=== PATIENT | male | born 1960 | race African-American/Black ===

== ENCOUNTER 2018-06-26 12:03 | Inpatient (IN) | payer OTHER ==
[2018-06-26 12:20] VITALS: BMI 22.5
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
[2018-06-26] MEDS ORDERED: MENTHOL/PHENOL 1 EACH UD MM PRN (13:31)
[2018-06-26] MEDS ORDERED: MAGNESIUM CITRATE 300 ML BOTTLE PO PRN (13:31)
[2018-06-26] MEDS ORDERED: guaiFENesin/D-METHORPHAN HB 10 ML UNIT-DOSE CUPS PO PRN (13:31)
[2018-06-26] MEDS ORDERED: NICOTINE POLACRILEX 2 MG GUM BUC PRN (13:31)
[2018-06-26] MEDS ORDERED: P-EPHED 60MG/TRIPROLIDI 2.5MG TABLET PO PRN (13:31)
[2018-06-26] MEDS ORDERED: IBUPROFEN 400 MG TABLET (FP) PO PRN (13:31)
[2018-06-26] MEDS ORDERED: MAG HYDROX/AL HYDROX/SIMETH 30 ML UNIT-DOSE CUP PO PRN (13:31)
[2018-06-26] MEDS ORDERED: MAGNESIUM HYDROX 2400MG/30ML ORAL SUSPENSION 30 ML CUP PO PRN (13:31)
[2018-06-26] MEDS ORDERED: LOPERAMIDE HCL 2 MG CAPSULE PO PRN (13:31)
--- NOTE | 2018-06-26 13:39 | PN ---
[facility] Progress Note Note: patient is also on suboxone maintenance 8 mgs/2 mgs film sl bid
[2018-06-26] MEDS: AMOX TR/POT CLAV 875MG/125MG TABLETS (FP) PO SCH (15:36)
[2018-06-26] MEDS: BACITRACIN 0.9 GM PACKET TP SCH ×2 (15:36→21:45)
[2018-06-26] MEDS: NICOTINE 21 MG/24 HOURS TOPICAL PATCH TD SCH (15:36)
[2018-06-26] MEDS: metFORMIN HCL 500 MG TABLET (FP) PO SCH (17:12)
[2018-06-26] MEDS: INSULIN SLIDING SCALE (NOVOLOG) 1 VIAL SQ SCH ×2 (17:13→21:46)
[2018-06-26] MEDS ORDERED: INSULIN (NOVOLOG) ASPART 100 UNITS/ML 10ML VIAL ONE (17:16)
[2018-06-26 18:33] LABS: URINE APPEARANCE CLEAR; URINE BILIRUBIN NEGATIVE (<2.0 mg/dL); URINE COLOR STRAW; URINE GLUCOSE (UA) 3+ (NEGATIVE); URINE KETONE NEGATIVE (NEGATIVE); URINE LEUK ESTERASE NEGATIVE (NEGATIVE); URINE NITRITE NEGATIVE (NEGATIVE); URINE PROTEIN NEGATIVE (NEGATIVE); URINE UROBILINOGEN NEGATIVE mg/dL (0.2-1.0)
[2018-06-26] MEDS: SULFAMETHOXAZOLE/TRIMETHOPRIM 800MG/160MG D.S. TABLET PO SCH (21:45)
[2018-06-26] MEDS: THIAMINE HCL 100 MG TABLET (FP) PO SCH (21:45)
[2018-06-26] MEDS: BUPRENORPHINE/NALOXONE 8 MG/2 MG FILM PACKET SL SCH (21:45)
[2018-06-26] MEDS: diphenhydrAMINE HCL 25 MG CAPSULE (FP) PO PRN (21:45)
[2018-06-26] MEDS: INSULIN (LEVEMIR) 100 UNITS/ML UNITS SQ SCH (21:48)
[2018-06-27] MEDS: AMOX TR/POT CLAV 875MG/125MG TABLETS (FP) PO SCH ×2 (02:14→14:37)
[2018-06-27] MEDS: metFORMIN HCL 500 MG TABLET (FP) PO SCH ×2 (06:07→16:55)
[2018-06-27] MEDS: INSULIN SLIDING SCALE (NOVOLOG) 1 VIAL SQ SCH ×4 (06:08→21:14)
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
[2018-06-27] MEDS: PRENATAL VITAMINS W/ FOLIC ACID TABLET (FP) PO SCH (10:02)
[2018-06-27] MEDS: NICOTINE 21 MG/24 HOURS TOPICAL PATCH TD SCH (10:02)
[2018-06-27] MEDS: SULFAMETHOXAZOLE/TRIMETHOPRIM 800MG/160MG D.S. TABLET PO SCH ×2 (10:02→21:11)
[2018-06-27] MEDS: BUPRENORPHINE/NALOXONE 8 MG/2 MG FILM PACKET SL SCH ×2 (10:02→21:50)
[2018-06-27] MEDS: ASPIRIN COATED 81 MG TABLET.EC PO SCH (10:02)
[2018-06-27] MEDS: BACITRACIN 0.9 GM PACKET TP SCH ×2 (10:02→21:11)
[2018-06-27 10:10] LABS: HEMATOCRIT 39.1 % (35.4-49); HEMOGLOBIN 12.6 GM/dL (11.7-16.9); MCH 28.3 pg (25.7-33.7); MCHC 32.3 g/dl (32.0-35.9); MEAN CELL VOLUME 87.5 fl (80-96); MEAN PLT VOLUME 10.7 fl (7.5-11.1); PLATELET COUNT 264 K/MM3 (134-434); RBC 4.47 M/mm3 (4.00-5.60); RDW 14.7 % (11.9-15.9); WHITE BLOOD COUNT 6.5 K/mm3 (4.0-10.0)
[2018-06-27 10:27] LABS: ALBUMIN 3.8 g/dl (3.4-5.0); ALK PHOS 102 U/L (45-117); ANION GAP 9 MMOL/L (8-16); BILIRUBIN,TOTAL 0.4 mg/dL (0.2-1); BLOOD UREA NITROGEN 15 mg/dL (7-18); CALCIUM 9.1 mg/dL (8.5-10.1); CHLORIDE 94 mmol/L (98-107); CO2 27 mmol/L (21-32); CREATININE 1.1 mg/dL (0.55-1.3); POTASSIUM 4.8 mmol/L (3.5-5.1); SGOT/AST 13 U/L (15-37); SGPT/ALT 20 U/L (13-61); SODIUM 130 mmol/L (136-145); TOT PROT 8.2 g/dl (6.4-8.2)
[2018-06-27 11:07] LABS: GLUCOSE,RANDOM 307 mg/dL (74-106)
[2018-06-27] MEDS ORDERED: INSULIN (NOVOLOG) ASPART 100 UNITS/ML 10ML VIAL ONE (11:55)
[2018-06-27] MEDS ORDERED: FLU VACCINE QUAD 60 MCG/0.5 ML (MDV 18-19) IM ONE (12:00)
[2018-06-27] MEDS: THIAMINE HCL 100 MG TABLET (FP) PO SCH (21:11)
[2018-06-27] MEDS: INSULIN (LEVEMIR) 100 UNITS/ML UNITS SQ SCH (21:14)
[2018-06-27] MEDS ORDERED: SUVOREXANT 10 MG TABLET PO PRN (22:00)
[2018-06-28] MEDS: INSULIN SLIDING SCALE (NOVOLOG) 1 VIAL SQ SCH ×2 (06:19→11:12)
[2018-06-28] MEDS: metFORMIN HCL 500 MG TABLET (FP) PO SCH ×2 (07:41→16:52)
[2018-06-28] MEDS: AMOX TR/POT CLAV 875MG/125MG TABLETS (FP) PO SCH ×2 (07:54→18:51)
[2018-06-28] MEDS ORDERED: PT OWN MED DRAWER 7, Y5N ONE (09:35)
[2018-06-28] MEDS: ASPIRIN COATED 81 MG TABLET.EC PO SCH (10:19)
[2018-06-28] MEDS: BUPRENORPHINE/NALOXONE 8 MG/2 MG FILM PACKET SL SCH ×2 (10:19→21:52)
[2018-06-28] MEDS: PRENATAL VITAMINS W/ FOLIC ACID TABLET (FP) PO SCH (10:19)
[2018-06-28] MEDS: NICOTINE 21 MG/24 HOURS TOPICAL PATCH TD SCH (10:19)
[2018-06-28] MEDS: SULFAMETHOXAZOLE/TRIMETHOPRIM 800MG/160MG D.S. TABLET PO SCH ×2 (10:19→21:51)
[2018-06-28] MEDS: BACITRACIN 0.9 GM PACKET TP SCH ×2 (10:19→21:52)
--- NOTE | 2018-06-28 11:12 | PN ---
[facility] Progress Note Note: PT C/O NOT EATING AND HAS UPSET STOMACH. PT WAS SEEN BY THE DIETITIAN THIS MORNING. Vital Signs 06/28/18 06/28/18 03:30 07:16 Temperature 98.1 F Pulse Rate 86 Respiratory 16 18 Rate Blood Pressure 104/65 Laboratory Tests 06/26/18 06/26/18 06/26/18 13:09 15:00 17:12 WBC RBC Hgb Hct MCV MCH MCHC RDW Plt Count MPV Sodium Potassium Chloride Carbon Dioxide Anion Gap BUN Creatinine Creat Clearance w eGFR POC Glucometer 473 372 Random Glucose Calcium Total Bilirubin AST ALT Alkaline Phosphatase Total Protein Albumin Urine Color Straw Urine Appearance Clear Urine pH 7.0 Ur Specific [place] 1.024 Urine Protein Negative Urine Glucose (UA) 3+ H Urine Ketones Negative Urine Blood Negative Urine Nitrite Negative Urine Bilirubin Negative Urine Urobilinogen Negative Ur Leukocyte Esterase Negative RPR Titer 06/26/18 06/27/18 06/27/18 21:46 06:00 06:00 WBC 6.5 RBC 4.47 Hgb 12.6 Hct 39.1 MCV 87.5 MCH 28.3 MCHC 32.3 RDW 14.7 Plt Count 264 MPV 10.7 Sodium 130 L Potassium 4.8 Chloride 94 L Carbon Dioxide 27 Anion Gap 9 BUN 15 Creatinine 1.1 Creat Clearance w eGFR > 60 POC Glucometer 165 Random Glucose 307 H* Calcium 9.1 Total Bilirubin 0.4 AST 13 L ALT 20 Alkaline Phosphatase 102 Total Protein 8.2 Albumin 3.8 Urine Color Urine Appearance Urine pH Ur Specific [place] Urine Protein Urine Glucose (UA) Urine Ketones Urine Blood Urine Nitrite Urine Bilirubin Urine Urobilinogen Ur Leukocyte Esterase RPR Titer 06/27/18 06/27/18 06/27/18 06:00 06:06 11:50 WBC RBC Hgb Hct MCV MCH MCHC RDW Plt Count MPV Sodium Potassium Chloride Carbon Dioxide Anion Gap BUN Creatinine Creat Clearance w eGFR POC Glucometer 117 82 Random Glucose Calcium Total Bilirubin AST ALT Alkaline Phosphatase Total Protein Albumin Urine Color Urine Appearance Urine pH Ur Specific [place] Urine Protein Urine Glucose (UA) Urine Ketones Urine Blood Urine Nitrite Urine Bilirubin Urine Urobilinogen Ur Leukocyte Esterase RPR Titer Nonreactive 06/27/18 06/27/18 06/28/18 16:55 21:12 06:15 WBC RBC Hgb Hct MCV MCH MCHC RDW Plt Count MPV Sodium Potassium Chloride Carbon Dioxide Anion Gap BUN Creatinine Creat Clearance w eGFR POC Glucometer 113 156 74 Random Glucose Calcium Total Bilirubin AST ALT Alkaline Phosphatase Total Protein Albumin Urine Color Urine Appearance Urine pH Ur Specific [place] Urine Protein Urine Glucose (UA) Urine Ketones Urine Blood Urine Nitrite Urine Bilirubin Urine Urobilinogen Ur Leukocyte Esterase RPR Titer PLAN;MYLANTA PRN GLUCERNA WITH MEALS DECREASE METFORMIN TO 500 MG BID AND LEVEMIR TO 20 UNITS HS AND RE-EVALUTE DOSES NEEDED(RE-EVALUATE AND MAY PUT PT BACK TO HOME DOSES IF NEEDED)
[2018-06-28] MEDS ORDERED: COLLOIDAL OATMEAL 1 BAR EACH TP PRN (12:53)
--- NOTE | 2018-06-28 16:23 | PN ---
[facility] Progress Note Note: Patient seen with FIELD SERVICE ENGINEER Yarelis Montiel. He is a 57 year old gentleman on Suboxone 16mg a day as an outpatient and would like to use it like he does at home: breaks off pieces of the strip as he sees fit to and feels the need to. Although I don't have a problem with using it in this way, I explained that it is against hospital policy to allow him to keep a narcotic on his person while in the inpatient setting. I offered to order the Suboxone as 4mg strips, 4 times a day but he refused. He told us that he would refuse the medication if he doesn't feel it is necessary at the time and I am in agreement with that. Suboxone has a ceiling and therefore you can start and stop doses more easily without worry for overdose. This was all explained to the patient and he agreed to our plan.
[2018-06-28] MEDS: THIAMINE HCL 100 MG TABLET (FP) PO SCH (21:51)
[2018-06-28] MEDS: INSULIN (LEVEMIR) 100 UNITS/ML UNITS SQ SCH (21:55)
[2018-06-29] MEDS: metFORMIN HCL 500 MG TABLET (FP) PO SCH ×2 (06:25→17:00)
[2018-06-29] MEDS: AMOX TR/POT CLAV 875MG/125MG TABLETS (FP) PO SCH ×2 (07:12→17:30)
[2018-06-29] MEDS: ASPIRIN COATED 81 MG TABLET.EC PO SCH (11:30)
[2018-06-29] MEDS: SULFAMETHOXAZOLE/TRIMETHOPRIM 800MG/160MG D.S. TABLET PO SCH ×2 (11:30→22:10)
[2018-06-29] MEDS: PRENATAL VITAMINS W/ FOLIC ACID TABLET (FP) PO SCH (11:30)
[2018-06-29] MEDS: NICOTINE 21 MG/24 HOURS TOPICAL PATCH TD SCH (11:30)
[2018-06-29] MEDS: BACITRACIN 0.9 GM PACKET TP SCH ×2 (11:31→22:12)
[2018-06-29] MEDS: BUPRENORPHINE/NALOXONE 8 MG/2 MG FILM PACKET SL SCH ×2 (11:34→22:11)
[2018-06-29] MEDS ORDERED: AMOX TR/POT CLAV 875MG/125MG TABLETS (FP) PO SCH (11:38)
--- NOTE | 2018-06-29 12:00 | PN ---
S Progress Note Note: Pt c/o abdominal upset as a result of using generic augumentin. Not receptive to education that the 2 antibiotics (also on Bactrim) and not the generic may be responsible for the stomach upset. Pt's Augmentin dose revised to say that pt may use own medication as pt stated he wants to use his own stock. He states the augmentin being given here upsets his abdomen.
[2018-06-29] MEDS ORDERED: AMOX TR/POT CLAV 875MG/125MG TABLETS (FP) PO ONE ×3 (12:01→13:45)
[2018-06-29] MEDS: THIAMINE HCL 100 MG TABLET (FP) PO SCH (22:10)
[2018-06-29] MEDS: INSULIN (LEVEMIR) 100 UNITS/ML UNITS SQ SCH (22:12)
[2018-06-29] MEDS: diphenhydrAMINE HCL 25 MG CAPSULE (FP) PO PRN (22:14)
[2018-06-30] MEDS: metFORMIN HCL 500 MG TABLET (FP) PO SCH ×2 (06:33→17:20)
[2018-06-30] MEDS: AMOX TR/POT CLAV 875MG/125MG TABLETS (FP) PO SCH ×2 (07:00→17:19)
[2018-06-30] MEDS: SULFAMETHOXAZOLE/TRIMETHOPRIM 800MG/160MG D.S. TABLET PO SCH ×2 (10:30→21:32)
[2018-06-30] MEDS: PRENATAL VITAMINS W/ FOLIC ACID TABLET (FP) PO SCH (10:30)
[2018-06-30] MEDS: ASPIRIN COATED 81 MG TABLET.EC PO SCH (10:31)
[2018-06-30] MEDS: BACITRACIN 0.9 GM PACKET TP SCH ×2 (10:31→21:32)
[2018-06-30] MEDS: BUPRENORPHINE/NALOXONE 8 MG/2 MG FILM PACKET SL SCH ×2 (10:31→22:17)
[2018-06-30] MEDS: NICOTINE 21 MG/24 HOURS TOPICAL PATCH TD SCH (10:31)
[2018-06-30] MEDS: THIAMINE HCL 100 MG TABLET (FP) PO SCH (21:32)
[2018-06-30] MEDS: diphenhydrAMINE HCL 25 MG CAPSULE (FP) PO PRN (21:33)
[2018-06-30] MEDS: INSULIN (LEVEMIR) 100 UNITS/ML UNITS SQ SCH (21:34)
[2018-06-30] MEDS ORDERED: SUVOREXANT 10 MG TABLET PO PRN (22:00)
[2018-07-01] MEDS: metFORMIN HCL 500 MG TABLET (FP) PO SCH ×2 (06:13→17:10)
[2018-07-01] MEDS: AMOX TR/POT CLAV 875MG/125MG TABLETS (FP) PO SCH ×2 (08:35→17:10)
[2018-07-01] MEDS: BACITRACIN 0.9 GM PACKET TP SCH ×2 (10:34→21:31)
[2018-07-01] MEDS: BUPRENORPHINE/NALOXONE 8 MG/2 MG FILM PACKET SL SCH ×2 (10:34→21:31)
[2018-07-01] MEDS: PRENATAL VITAMINS W/ FOLIC ACID TABLET (FP) PO SCH (10:35)
[2018-07-01] MEDS: NICOTINE 21 MG/24 HOURS TOPICAL PATCH TD SCH (10:35)
[2018-07-01] MEDS: SULFAMETHOXAZOLE/TRIMETHOPRIM 800MG/160MG D.S. TABLET PO SCH ×2 (10:35→21:30)
[2018-07-01] MEDS: ASPIRIN COATED 81 MG TABLET.EC PO SCH (10:55)
[2018-07-01] MEDS: ACETAMINOPHEN 325 MG TABLET (FP) PO PRN ×2 (17:16→21:30)
[2018-07-01] MEDS: INSULIN (LEVEMIR) 100 UNITS/ML UNITS SQ SCH (21:29)
[2018-07-01] MEDS: THIAMINE HCL 100 MG TABLET (FP) PO SCH (21:30)
[2018-07-02] MEDS: metFORMIN HCL 500 MG TABLET (FP) PO SCH ×2 (06:17→16:45)
[2018-07-02] MEDS: ACETAMINOPHEN 325 MG TABLET (FP) PO PRN (06:18)
[2018-07-02] MEDS: AMOX TR/POT CLAV 875MG/125MG TABLETS (FP) PO SCH ×2 (08:46→16:45)
[2018-07-02] MEDS: PRENATAL VITAMINS W/ FOLIC ACID TABLET (FP) PO SCH (10:46)
[2018-07-02] MEDS: SULFAMETHOXAZOLE/TRIMETHOPRIM 800MG/160MG D.S. TABLET PO SCH ×2 (10:47→21:30)
[2018-07-02] MEDS: NICOTINE 21 MG/24 HOURS TOPICAL PATCH TD SCH (10:47)
[2018-07-02] MEDS: ASPIRIN COATED 81 MG TABLET.EC PO SCH (10:47)
[2018-07-02] MEDS: BUPRENORPHINE/NALOXONE 8 MG/2 MG FILM PACKET SL SCH ×2 (10:47→21:34)
[2018-07-02] MEDS: BACITRACIN 0.9 GM PACKET TP SCH ×2 (10:48→21:30)
[2018-07-02] MEDS: THIAMINE HCL 100 MG TABLET (FP) PO SCH (21:30)
[2018-07-02] MEDS: hydrOXYzine PAMOATE 50 MG CAPSULE (FP) PO PRN (21:32)
[2018-07-02] MEDS: INSULIN (LEVEMIR) 100 UNITS/ML UNITS SQ SCH (21:34)
[2018-07-03] MEDS: metFORMIN HCL 500 MG TABLET (FP) PO SCH ×2 (06:12→17:54)
[2018-07-03] MEDS: AMOX TR/POT CLAV 875MG/125MG TABLETS (FP) PO SCH ×2 (07:48→17:54)
[2018-07-03] MEDS ORDERED: PT OWN MED DRAWER 7, Y5N ONE (08:47)
[2018-07-03] MEDS: BACITRACIN 0.9 GM PACKET TP SCH ×2 (10:56→22:10)
[2018-07-03] MEDS: ASPIRIN COATED 81 MG TABLET.EC PO SCH (10:56)
[2018-07-03] MEDS: SULFAMETHOXAZOLE/TRIMETHOPRIM 800MG/160MG D.S. TABLET PO SCH ×2 (10:56→22:10)
[2018-07-03] MEDS: PRENATAL VITAMINS W/ FOLIC ACID TABLET (FP) PO SCH (10:56)
[2018-07-03] MEDS: BUPRENORPHINE/NALOXONE 8 MG/2 MG FILM PACKET SL SCH (10:56)
[2018-07-03] MEDS: NICOTINE 21 MG/24 HOURS TOPICAL PATCH TD SCH (10:56)
[2018-07-03] MEDS: IBUPROFEN 600 MG TABLET (FP) PO PRN (15:53)
[2018-07-03] MEDS ORDERED: SUVOREXANT 10 MG TABLET PO PRN (22:00)
[2018-07-03] MEDS: THIAMINE HCL 100 MG TABLET (FP) PO SCH (22:10)
[2018-07-03] MEDS: diphenhydrAMINE HCL 25 MG CAPSULE (FP) PO PRN (22:11)
[2018-07-03] MEDS: INSULIN (LEVEMIR) 100 UNITS/ML UNITS SQ SCH (22:12)
[2018-07-04] MEDS ORDERED: PT OWN MED DRAWER 7, Y5N ONE (03:14)
[2018-07-04] MEDS: metFORMIN HCL 500 MG TABLET (FP) PO SCH ×2 (06:34→16:50)
[2018-07-04] MEDS: IBUPROFEN 600 MG TABLET (FP) PO PRN (06:35)
[2018-07-04] MEDS: AMOX TR/POT CLAV 875MG/125MG TABLETS (FP) PO SCH ×2 (07:06→16:50)
[2018-07-04] MEDS: ASPIRIN COATED 81 MG TABLET.EC PO SCH (10:29)
[2018-07-04] MEDS: PRENATAL VITAMINS W/ FOLIC ACID TABLET (FP) PO SCH (10:29)
[2018-07-04] MEDS: NICOTINE 21 MG/24 HOURS TOPICAL PATCH TD SCH (10:30)
[2018-07-04] MEDS: BACITRACIN 0.9 GM PACKET TP SCH ×2 (10:30→21:10)
[2018-07-04] MEDS: SULFAMETHOXAZOLE/TRIMETHOPRIM 800MG/160MG D.S. TABLET PO SCH ×2 (10:30→21:10)
--- NOTE | 2018-07-04 15:30 | PN ---
S Progress Note Note: C/O STOMACH DISCOMFORT AND DIFFICULTY MOVING BOWELS STATING "IT'S HARD". DENIES NAUSEA,VOMITING,DIARRHEA. ALERT O X 3. NAD. PLAN: MOM NOW. COLACE 100 MG PO TID INCREASE PO FLUIDS
[2018-07-04] MEDS: THIAMINE HCL 100 MG TABLET (FP) PO SCH (21:06)
[2018-07-04] MEDS: hydrOXYzine PAMOATE 50 MG CAPSULE (FP) PO PRN (21:06)
[2018-07-04] MEDS: DOCUSATE SODIUM 100 MG CAPSULE (FP) PO SCH (21:07)
[2018-07-04] MEDS: INSULIN (LEVEMIR) 100 UNITS/ML UNITS SQ SCH (21:07)
[2018-07-05] MEDS: IBUPROFEN 600 MG TABLET (FP) PO PRN (06:28)
[2018-07-05] MEDS: DOCUSATE SODIUM 100 MG CAPSULE (FP) PO SCH ×3 (06:28→21:55)
[2018-07-05] MEDS ORDERED: PT OWN MED DRAWER 7, Y5N ONE (06:31)
[2018-07-05] MEDS: AMOX TR/POT CLAV 875MG/125MG TABLETS (FP) PO SCH ×2 (07:55→17:25)
[2018-07-05] MEDS: metFORMIN HCL 500 MG TABLET (FP) PO SCH ×2 (07:55→17:25)
[2018-07-05] MEDS: BACITRACIN 0.9 GM PACKET TP SCH ×2 (10:23→21:55)
[2018-07-05] MEDS: PRENATAL VITAMINS W/ FOLIC ACID TABLET (FP) PO SCH (10:23)
[2018-07-05] MEDS: ASPIRIN COATED 81 MG TABLET.EC PO SCH (10:23)
[2018-07-05] MEDS: NICOTINE 21 MG/24 HOURS TOPICAL PATCH TD SCH (10:23)
[2018-07-05] MEDS: SULFAMETHOXAZOLE/TRIMETHOPRIM 800MG/160MG D.S. TABLET PO SCH ×2 (10:23→21:55)
[2018-07-05] MEDS: INSULIN (LEVEMIR) 100 UNITS/ML UNITS SQ SCH (21:52)
[2018-07-05] MEDS: MELATONIN 5 MG TABLETS PO PRN (21:55)
[2018-07-05] MEDS: diphenhydrAMINE HCL 25 MG CAPSULE (FP) PO PRN (21:55)
[2018-07-05] MEDS: THIAMINE HCL 100 MG TABLET (FP) PO SCH (21:55)
[2018-07-06] MEDS: DOCUSATE SODIUM 100 MG CAPSULE (FP) PO SCH ×3 (06:35→21:06)
[2018-07-06] MEDS: metFORMIN HCL 500 MG TABLET (FP) PO SCH ×2 (06:35→16:52)
[2018-07-06] MEDS: AMOX TR/POT CLAV 875MG/125MG TABLETS (FP) PO SCH (07:25)
[2018-07-06] MEDS: BACITRACIN 0.9 GM PACKET TP SCH ×2 (09:47→21:05)
[2018-07-06] MEDS: PRENATAL VITAMINS W/ FOLIC ACID TABLET (FP) PO SCH (09:47)
[2018-07-06] MEDS: SULFAMETHOXAZOLE/TRIMETHOPRIM 800MG/160MG D.S. TABLET PO SCH ×2 (09:47→21:06)
[2018-07-06] MEDS: NICOTINE 21 MG/24 HOURS TOPICAL PATCH TD SCH (09:47)
[2018-07-06] MEDS: ASPIRIN COATED 81 MG TABLET.EC PO SCH (09:47)
[2018-07-06] MEDS: IBUPROFEN 600 MG TABLET (FP) PO PRN (09:48)
[2018-07-06] MEDS: diphenhydrAMINE HCL 25 MG CAPSULE (FP) PO PRN (21:06)
[2018-07-06] MEDS: INSULIN (LEVEMIR) 100 UNITS/ML UNITS SQ SCH (21:06)
[2018-07-06] MEDS: MELATONIN 5 MG TABLETS PO PRN (21:06)
[2018-07-06] MEDS: THIAMINE HCL 100 MG TABLET (FP) PO SCH (21:07)
[2018-07-07] MEDS: metFORMIN HCL 500 MG TABLET (FP) PO SCH ×2 (06:50→17:24)
[2018-07-07] MEDS: DOCUSATE SODIUM 100 MG CAPSULE (FP) PO SCH ×3 (06:50→22:22)
[2018-07-07] MEDS: IBUPROFEN 600 MG TABLET (FP) PO PRN ×2 (06:57→17:25)
[2018-07-07] MEDS: PRENATAL VITAMINS W/ FOLIC ACID TABLET (FP) PO SCH (10:17)
[2018-07-07] MEDS: ASPIRIN COATED 81 MG TABLET.EC PO SCH (10:17)
[2018-07-07] MEDS: SULFAMETHOXAZOLE/TRIMETHOPRIM 800MG/160MG D.S. TABLET PO SCH ×2 (10:17→22:22)
[2018-07-07] MEDS: BACITRACIN 0.9 GM PACKET TP SCH ×2 (10:17→22:22)
[2018-07-07] MEDS: NICOTINE 21 MG/24 HOURS TOPICAL PATCH TD SCH (10:18)
[2018-07-07] MEDS: ACETAMINOPHEN 325 MG TABLET (FP) PO PRN (14:57)
[2018-07-07] MEDS: THIAMINE HCL 100 MG TABLET (FP) PO SCH (22:22)
[2018-07-07] MEDS: INSULIN (LEVEMIR) 100 UNITS/ML UNITS SQ SCH (22:23)
[2018-07-07] MEDS: MELATONIN 5 MG TABLETS PO PRN (22:25)
[2018-07-07] MEDS: diphenhydrAMINE HCL 25 MG CAPSULE (FP) PO PRN (22:25)
[2018-07-08] MEDS: DOCUSATE SODIUM 100 MG CAPSULE (FP) PO SCH ×3 (06:30→21:53)
[2018-07-08] MEDS: metFORMIN HCL 500 MG TABLET (FP) PO SCH ×2 (06:30→16:24)
[2018-07-08] MEDS: PRENATAL VITAMINS W/ FOLIC ACID TABLET (FP) PO SCH (10:34)
[2018-07-08] MEDS: SULFAMETHOXAZOLE/TRIMETHOPRIM 800MG/160MG D.S. TABLET PO SCH ×2 (10:35→21:53)
[2018-07-08] MEDS: NICOTINE 21 MG/24 HOURS TOPICAL PATCH TD SCH (10:35)
[2018-07-08] MEDS: ASPIRIN COATED 81 MG TABLET.EC PO SCH (10:35)
[2018-07-08] MEDS: BACITRACIN 0.9 GM PACKET TP SCH ×2 (10:35→21:52)
[2018-07-08] MEDS: IBUPROFEN 600 MG TABLET (FP) PO PRN (11:41)
[2018-07-08] MEDS ORDERED: NAPROXEN 250 MG TABLET (FP) PO ONE (15:11)
[2018-07-08] MEDS: CYCLOBENZAPRINE HCL 10 MG TABLET (FP) PO SCH ×2 (15:13→21:53)
[2018-07-08] MEDS ORDERED: PANTOPRAZOLE 40 MG TABLET (FP) PO SCH (15:15)
--- NOTE | 2018-07-08 15:16 | PN ---
[facility] Progress Note Note: PT STILL C/O BODY ACHES,HEADACHE STOMACH CRAMPS/ACHES. REPORTS HE HAD BM WITH AID OF [facility]. ALERT O X 3. OOB ANBULATING WITH STEADY GAIT. Vital Signs - 24 hr 07/08/18 07/08/18 07/08/18 00:30 03:30 07:01 Temperature 97.9 F Pulse Rate 94 H Respiratory 16 16 18 Rate Blood Pressure 123/63 Laboratory Tests 06/26/18 06/26/18 06/26/18 13:09 15:00 17:12 WBC RBC Hgb Hct MCV MCH MCHC RDW Plt Count MPV Sodium Potassium Chloride Carbon Dioxide Anion Gap BUN Creatinine Creat Clearance w eGFR POC Glucometer 473 372 Random Glucose Calcium Total Bilirubin AST ALT Alkaline Phosphatase Total Protein Albumin Urine Color Straw Urine Appearance Clear Urine pH 7.0 Ur Specific [place] 1.024 Urine Protein Negative Urine Glucose (UA) 3+ H Urine Ketones Negative Urine Blood Negative Urine Nitrite Negative Urine Bilirubin Negative Urine Urobilinogen Negative Ur Leukocyte Esterase Negative RPR Titer 06/26/18 06/27/18 06/27/18 21:46 06:00 06:00 WBC 6.5 RBC 4.47 Hgb 12.6 Hct 39.1 MCV 87.5 MCH 28.3 MCHC 32.3 RDW 14.7 Plt Count 264 MPV 10.7 Sodium 130 L Potassium 4.8 Chloride 94 L Carbon Dioxide 27 Anion Gap 9 BUN 15 Creatinine 1.1 Creat Clearance w eGFR > 60 POC Glucometer 165 Random Glucose 307 H* Calcium 9.1 Total Bilirubin 0.4 AST 13 L ALT 20 Alkaline Phosphatase 102 Total Protein 8.2 Albumin 3.8 Urine Color Urine Appearance Urine pH Ur Specific [place] Urine Protein Urine Glucose (UA) Urine Ketones Urine Blood Urine Nitrite Urine Bilirubin Urine Urobilinogen Ur Leukocyte Esterase RPR Titer 06/27/18 06/27/18 06/27/18 06:00 06:06 11:50 WBC RBC Hgb Hct MCV MCH MCHC RDW Plt Count MPV Sodium Potassium Chloride Carbon Dioxide Anion Gap BUN Creatinine Creat Clearance w eGFR POC Glucometer 117 82 Random Glucose Calcium Total Bilirubin AST ALT Alkaline Phosphatase Total Protein Albumin Urine Color Urine Appearance Urine pH Ur Specific [place] Urine Protein Urine Glucose (UA) Urine Ketones Urine Blood Urine Nitrite Urine Bilirubin Urine Urobilinogen Ur Leukocyte Esterase RPR Titer Nonreactive 10/01/0906/27/18 06/28/18 16:55 21:12 06:15 WBC RBC Hgb Hct MCV MCH MCHC RDW Plt Count MPV Sodium Potassium Chloride Carbon Dioxide Anion Gap BUN Creatinine Creat Clearance w eGFR POC Glucometer 113 156 74 Random Glucose Calcium Total Bilirubin AST ALT Alkaline Phosphatase Total Protein Albumin Urine Color Urine Appearance Urine pH Ur Specific [place] Urine Protein Urine Glucose (UA) Urine Ketones Urine Blood Urine Nitrite Urine Bilirubin Urine Urobilinogen Ur Leukocyte Esterase RPR Titer 06/28/18 06/28/18 06/28/18 11:11 16:51 21:54 WBC RBC Hgb Hct MCV MCH MCHC RDW Plt Count MPV Sodium Potassium Chloride Carbon Dioxide Anion Gap BUN Creatinine Creat Clearance w eGFR POC Glucometer 108 178 219 Random Glucose Calcium Total Bilirubin AST ALT Alkaline Phosphatase Total Protein Albumin Urine Color Urine Appearance Urine pH Ur Specific [place] Urine Protein Urine Glucose (UA) Urine Ketones Urine Blood Urine Nitrite Urine Bilirubin Urine Urobilinogen Ur Leukocyte Esterase RPR Titer 06/29/18 06/29/18 06/29/18 06:24 11:57 20:48 WBC RBC Hgb Hct MCV MCH MCHC RDW Plt Count MPV Sodium Potassium Chloride Carbon Dioxide Anion Gap BUN Creatinine Creat Clearance w eGFR POC Glucometer 127 152 244 Random Glucose Calcium Total Bilirubin AST ALT Alkaline Phosphatase Total Protein Albumin Urine Color Urine Appearance Urine pH Ur Specific [place] Urine Protein Urine Glucose (UA) Urine Ketones Urine Blood Urine Nitrite Urine Bilirubin Urine Urobilinogen Ur Leukocyte Esterase RPR Titer 06/30/18 06/30/18 07/01/18 06:33 11:45 06:12 WBC RBC Hgb Hct MCV MCH MCHC RDW Plt Count MPV Sodium Potassium Chloride Carbon Dioxide Anion Gap BUN Creatinine Creat Clearance w eGFR POC Glucometer 113 129 146 Random Glucose Calcium Total Bilirubin AST ALT Alkaline Phosphatase Total Protein Albumin Urine Color Urine Appearance Urine pH Ur Specific [place] Urine Protein Urine Glucose (UA) Urine Ketones Urine Blood Urine Nitrite Urine Bilirubin Urine Urobilinogen Ur Leukocyte Esterase RPR Titer 07/01/18 07/01/18 07/02/18 17:09 21:26 06:17 WBC RBC Hgb Hct MCV MCH MCHC RDW Plt Count MPV Sodium Potassium Chloride Carbon Dioxide Anion Gap BUN Creatinine Creat Clearance w eGFR POC Glucometer 244 348 108 Random Glucose Calcium Total Bilirubin AST ALT Alkaline Phosphatase Total Protein Albumin Urine Color Urine Appearance Urine pH Ur Specific [place] Urine Protein Urine Glucose (UA) Urine Ketones Urine Blood Urine Nitrite Urine Bilirubin Urine Urobilinogen Ur Leukocyte Esterase RPR Titer 07/02/18 07/02/18 07/03/18 16:45 21:29 06:12 WBC RBC Hgb Hct MCV MCH MCHC RDW Plt Count MPV Sodium Potassium Chloride Carbon Dioxide Anion Gap BUN Creatinine Creat Clearance w eGFR POC Glucometer 176 265 123 Random Glucose Calcium Total Bilirubin AST ALT Alkaline Phosphatase Total Protein Albumin Urine Color Urine Appearance Urine pH Ur Specific [place] Urine Protein Urine Glucose (UA) Urine Ketones Urine Blood Urine Nitrite Urine Bilirubin Urine Urobilinogen Ur Leukocyte Esterase RPR Titer 07/03/18 07/03/18 07/04/18 16:47 22:09 06:34 WBC RBC Hgb Hct MCV MCH MCHC RDW Plt Count MPV Sodium Potassium Chloride Carbon Dioxide Anion Gap BUN Creatinine Creat Clearance w eGFR POC Glucometer 168 281 180 Random Glucose Calcium Total Bilirubin AST ALT Alkaline Phosphatase Total Protein Albumin Urine Color Urine Appearance Urine pH Ur Specific [place] Urine Protein Urine Glucose (UA) Urine Ketones Urine Blood Urine Nitrite Urine Bilirubin Urine Urobilinogen Ur Leukocyte Esterase RPR Titer 07/04/18 07/04/18 07/05/18 16:49 21:06 06:27 WBC RBC Hgb Hct MCV MCH MCHC RDW Plt Count MPV Sodium Potassium Chloride Carbon Dioxide Anion Gap BUN Creatinine Creat Clearance w eGFR POC Glucometer 180 248 88 Random Glucose Calcium Total Bilirubin AST ALT Alkaline Phosphatase Total Protein Albumin Urine Color Urine Appearance Urine pH Ur Specific [place] Urine Protein Urine Glucose (UA) Urine Ketones Urine Blood Urine Nitrite Urine Bilirubin Urine Urobilinogen Ur Leukocyte Esterase RPR Titer 07/05/18 07/05/18 07/06/18 16:58 21:52 06:34 WBC RBC Hgb Hct MCV MCH MCHC RDW Plt Count MPV Sodium Potassium Chloride Carbon Dioxide Anion Gap BUN Creatinine Creat Clearance w eGFR POC Glucometer 213 238 113 Random Glucose Calcium Total Bilirubin AST ALT Alkaline Phosphatase Total Protein Albumin Urine Color Urine Appearance Urine pH Ur Specific [place] Urine Protein Urine Glucose (UA) Urine Ketones Urine Blood Urine Nitrite Urine Bilirubin Urine Urobilinogen Ur Leukocyte Esterase RPR Titer 07/06/18 07/06/18 07/07/18 16:51 21:04 06:49 WBC RBC Hgb Hct MCV MCH MCHC RDW Plt Count MPV Sodium Potassium Chloride Carbon Dioxide Anion Gap BUN Creatinine Creat Clearance w eGFR POC Glucometer 183 257 107 Random Glucose Calcium Total Bilirubin AST ALT Alkaline Phosphatase Total Protein Albumin Urine Color Urine Appearance Urine pH Ur Specific [place] Urine Protein Urine Glucose (UA) Urine Ketones Urine Blood Urine Nitrite Urine Bilirubin Urine Urobilinogen Ur Leukocyte Esterase RPR Titer 07/07/18 07/07/18 07/08/18 17:22 22:21 06:30 WBC RBC Hgb Hct MCV MCH MCHC RDW Plt Count MPV Sodium Potassium Chloride Carbon Dioxide Anion Gap BUN Creatinine Creat Clearance w eGFR POC Glucometer 207 254 112 Random Glucose Calcium Total Bilirubin AST ALT Alkaline Phosphatase Total Protein Albumin Urine Color Urine Appearance Urine pH Ur Specific [place] Urine Protein Urine Glucose (UA) Urine Ketones Urine Blood Urine Nitrite Urine Bilirubin Urine Urobilinogen Ur Leukocyte Esterase RPR Titer D/C MOTRIN NAPROSYN 500 MG PO BID FLEXERIL 10 MG PO TID ZANTAC 150 MG PO DAILY
[2018-07-08] MEDS ORDERED: INSULIN (LEVEMIR) 100 UNITS/ML UNITS SQ ONE (20:36)
[2018-07-08] MEDS: INSULIN (LEVEMIR) 100 UNITS/ML UNITS SQ SCH (21:52)
[2018-07-08] MEDS: RANITIDINE HCL 150 MG TABLET (FP) PO SCH (21:53)
[2018-07-08] MEDS: THIAMINE HCL 100 MG TABLET (FP) PO SCH (21:53)
[2018-07-08] MEDS: NAPROXEN 500 MG TABLET (FP) PO SCH (21:53)
[2018-07-08] MEDS: MELATONIN 5 MG TABLETS PO PRN (21:54)
[2018-07-08] MEDS ORDERED: NAPROXEN 500 MG TABLET (FP) PO SCH (22:00)
[2018-07-09] MEDS: CYCLOBENZAPRINE HCL 10 MG TABLET (FP) PO SCH ×3 (06:31→21:29)
[2018-07-09] MEDS: DOCUSATE SODIUM 100 MG CAPSULE (FP) PO SCH ×3 (06:31→21:28)
[2018-07-09] MEDS: metFORMIN HCL 500 MG TABLET (FP) PO SCH ×2 (06:33→17:01)
[2018-07-09] MEDS ORDERED: PT OWN MED DRAWER 7, Y5N ONE ×2 (08:52→20:23)
[2018-07-09] MEDS: ASPIRIN COATED 81 MG TABLET.EC PO SCH (10:14)
[2018-07-09] MEDS: NAPROXEN 500 MG TABLET (FP) PO SCH ×2 (10:14→21:30)
[2018-07-09] MEDS: RANITIDINE HCL 150 MG TABLET (FP) PO SCH ×2 (10:14→21:28)
[2018-07-09] MEDS: NICOTINE 21 MG/24 HOURS TOPICAL PATCH TD SCH (10:14)
[2018-07-09] MEDS: SULFAMETHOXAZOLE/TRIMETHOPRIM 800MG/160MG D.S. TABLET PO SCH ×2 (10:14→21:28)
[2018-07-09] MEDS: BACITRACIN 0.9 GM PACKET TP SCH ×2 (10:14→21:28)
[2018-07-09] MEDS: PRENATAL VITAMINS W/ FOLIC ACID TABLET (FP) PO SCH (10:14)
[2018-07-09] MEDS: THIAMINE HCL 100 MG TABLET (FP) PO SCH (21:28)
[2018-07-09] MEDS: INSULIN (LEVEMIR) 100 UNITS/ML UNITS SQ SCH (21:30)
[2018-07-10] MEDS: CYCLOBENZAPRINE HCL 10 MG TABLET (FP) PO SCH ×3 (06:18→21:47)
[2018-07-10] MEDS: DOCUSATE SODIUM 100 MG CAPSULE (FP) PO SCH ×3 (06:18→21:47)
[2018-07-10] MEDS: ACETAMINOPHEN 325 MG TABLET (FP) PO PRN (06:18)
[2018-07-10] MEDS: metFORMIN HCL 500 MG TABLET (FP) PO SCH ×2 (07:09→17:03)
[2018-07-10] MEDS: NAPROXEN 500 MG TABLET (FP) PO SCH ×2 (10:01→21:47)
[2018-07-10] MEDS: NICOTINE 21 MG/24 HOURS TOPICAL PATCH TD SCH (10:01)
[2018-07-10] MEDS: SULFAMETHOXAZOLE/TRIMETHOPRIM 800MG/160MG D.S. TABLET PO SCH ×2 (10:01→21:47)
[2018-07-10] MEDS: PRENATAL VITAMINS W/ FOLIC ACID TABLET (FP) PO SCH (10:01)
[2018-07-10] MEDS: RANITIDINE HCL 150 MG TABLET (FP) PO SCH ×2 (10:01→21:47)
[2018-07-10] MEDS: ASPIRIN COATED 81 MG TABLET.EC PO SCH (10:01)
[2018-07-10] MEDS: BACITRACIN 0.9 GM PACKET TP SCH ×2 (10:03→21:47)
[2018-07-10] MEDS: INSULIN (LEVEMIR) 100 UNITS/ML UNITS SQ SCH (21:46)
[2018-07-10] MEDS: MELATONIN 5 MG TABLETS PO PRN (21:47)
[2018-07-10] MEDS: THIAMINE HCL 100 MG TABLET (FP) PO SCH (21:47)
[2018-07-11] MEDS: CYCLOBENZAPRINE HCL 10 MG TABLET (FP) PO SCH ×3 (06:15→21:27)
[2018-07-11] MEDS: DOCUSATE SODIUM 100 MG CAPSULE (FP) PO SCH ×3 (06:15→21:27)
[2018-07-11] MEDS: ACETAMINOPHEN 325 MG TABLET (FP) PO PRN (06:16)
[2018-07-11] MEDS: metFORMIN HCL 500 MG TABLET (FP) PO SCH ×2 (06:52→17:06)
[2018-07-11] MEDS: RANITIDINE HCL 150 MG TABLET (FP) PO SCH ×2 (10:42→21:27)
[2018-07-11] MEDS: ASPIRIN COATED 81 MG TABLET.EC PO SCH (10:42)
[2018-07-11] MEDS: BACITRACIN 0.9 GM PACKET TP SCH ×2 (10:42→21:27)
[2018-07-11] MEDS: NAPROXEN 500 MG TABLET (FP) PO SCH ×2 (10:42→21:27)
[2018-07-11] MEDS: NICOTINE 21 MG/24 HOURS TOPICAL PATCH TD SCH (10:42)
[2018-07-11] MEDS: PRENATAL VITAMINS W/ FOLIC ACID TABLET (FP) PO SCH (10:42)
[2018-07-11] MEDS: SULFAMETHOXAZOLE/TRIMETHOPRIM 800MG/160MG D.S. TABLET PO SCH ×2 (10:42→21:27)
[2018-07-11] MEDS: THIAMINE HCL 100 MG TABLET (FP) PO SCH (21:27)
[2018-07-11] MEDS: INSULIN (LEVEMIR) 100 UNITS/ML UNITS SQ SCH (21:29)
[2018-07-12] MEDS: CYCLOBENZAPRINE HCL 10 MG TABLET (FP) PO SCH ×3 (05:54→21:04)
[2018-07-12] MEDS: DOCUSATE SODIUM 100 MG CAPSULE (FP) PO SCH ×3 (05:54→21:04)
[2018-07-12] MEDS: metFORMIN HCL 500 MG TABLET (FP) PO SCH ×2 (07:05→17:11)
[2018-07-12] MEDS: RANITIDINE HCL 150 MG TABLET (FP) PO SCH ×2 (09:47→21:04)
[2018-07-12] MEDS: PRENATAL VITAMINS W/ FOLIC ACID TABLET (FP) PO SCH (09:47)
[2018-07-12] MEDS: BACITRACIN 0.9 GM PACKET TP SCH ×2 (09:47→21:04)
[2018-07-12] MEDS: NAPROXEN 500 MG TABLET (FP) PO SCH ×2 (09:47→21:04)
[2018-07-12] MEDS: ASPIRIN COATED 81 MG TABLET.EC PO SCH (09:47)
[2018-07-12] MEDS: SULFAMETHOXAZOLE/TRIMETHOPRIM 800MG/160MG D.S. TABLET PO SCH ×2 (09:47→21:04)
[2018-07-12] MEDS: NICOTINE 21 MG/24 HOURS TOPICAL PATCH TD SCH (09:48)
--- NOTE | 2018-07-12 16:15 | PN ---
[facility] Progress Note Note: 10 stitches removed from left heel area. area with granulation tissue/ callused skin tissue. bacitracin ointment and dsd applied.
[2018-07-12] MEDS: THIAMINE HCL 100 MG TABLET (FP) PO SCH (21:04)
[2018-07-12] MEDS: INSULIN (LEVEMIR) 100 UNITS/ML UNITS SQ SCH (21:05)
[2018-07-13] MEDS: DOCUSATE SODIUM 100 MG CAPSULE (FP) PO SCH ×3 (06:32→22:06)
[2018-07-13] MEDS: metFORMIN HCL 500 MG TABLET (FP) PO SCH ×2 (06:32→16:59)
[2018-07-13] MEDS: CYCLOBENZAPRINE HCL 10 MG TABLET (FP) PO SCH ×3 (06:33→22:06)
[2018-07-13] MEDS: BACITRACIN 0.9 GM PACKET TP SCH ×2 (09:50→22:05)
[2018-07-13] MEDS: RANITIDINE HCL 150 MG TABLET (FP) PO SCH ×2 (09:51→22:06)
[2018-07-13] MEDS: SULFAMETHOXAZOLE/TRIMETHOPRIM 800MG/160MG D.S. TABLET PO SCH ×2 (09:51→22:06)
[2018-07-13] MEDS: NAPROXEN 500 MG TABLET (FP) PO SCH ×2 (09:51→22:06)
[2018-07-13] MEDS: ASPIRIN COATED 81 MG TABLET.EC PO SCH (09:51)
[2018-07-13] MEDS: PRENATAL VITAMINS W/ FOLIC ACID TABLET (FP) PO SCH (09:51)
[2018-07-13] MEDS: NICOTINE 21 MG/24 HOURS TOPICAL PATCH TD SCH (09:51)
[2018-07-13] MEDS: INSULIN (LEVEMIR) 100 UNITS/ML UNITS SQ SCH (22:03)
[2018-07-13] MEDS: THIAMINE HCL 100 MG TABLET (FP) PO SCH (22:06)
[2018-07-14] MEDS: ACETAMINOPHEN 325 MG TABLET (FP) PO PRN (02:41)
[2018-07-14] MEDS: DOCUSATE SODIUM 100 MG CAPSULE (FP) PO SCH ×3 (06:38→21:49)
[2018-07-14] MEDS: CYCLOBENZAPRINE HCL 10 MG TABLET (FP) PO SCH ×3 (06:38→21:49)
[2018-07-14] MEDS: metFORMIN HCL 500 MG TABLET (FP) PO SCH ×2 (06:38→17:23)
[2018-07-14] MEDS: BACITRACIN 0.9 GM PACKET TP SCH ×2 (10:06→21:49)
[2018-07-14] MEDS: NAPROXEN 500 MG TABLET (FP) PO SCH ×2 (10:07→21:49)
[2018-07-14] MEDS: PRENATAL VITAMINS W/ FOLIC ACID TABLET (FP) PO SCH (10:07)
[2018-07-14] MEDS: ASPIRIN COATED 81 MG TABLET.EC PO SCH (10:07)
[2018-07-14] MEDS: RANITIDINE HCL 150 MG TABLET (FP) PO SCH ×2 (10:07→21:49)
[2018-07-14] MEDS: SULFAMETHOXAZOLE/TRIMETHOPRIM 800MG/160MG D.S. TABLET PO SCH ×2 (10:07→21:49)
[2018-07-14] MEDS: NICOTINE 21 MG/24 HOURS TOPICAL PATCH TD SCH (10:07)
[2018-07-14] MEDS: INSULIN (LEVEMIR) 100 UNITS/ML UNITS SQ SCH (21:49)
[2018-07-14] MEDS: THIAMINE HCL 100 MG TABLET (FP) PO SCH (21:49)
[2018-07-15] MEDS: CYCLOBENZAPRINE HCL 10 MG TABLET (FP) PO SCH ×3 (06:23→21:05)
[2018-07-15] MEDS: DOCUSATE SODIUM 100 MG CAPSULE (FP) PO SCH ×3 (06:24→21:05)
[2018-07-15] MEDS: metFORMIN HCL 500 MG TABLET (FP) PO SCH ×2 (07:16→16:43)
[2018-07-15] MEDS ORDERED: PT OWN MED DRAWER 7, Y5N ONE (09:53)
[2018-07-15] MEDS: SULFAMETHOXAZOLE/TRIMETHOPRIM 800MG/160MG D.S. TABLET PO SCH ×2 (10:12→21:05)
[2018-07-15] MEDS: PRENATAL VITAMINS W/ FOLIC ACID TABLET (FP) PO SCH (10:12)
[2018-07-15] MEDS: RANITIDINE HCL 150 MG TABLET (FP) PO SCH ×2 (10:12→21:05)
[2018-07-15] MEDS: BACITRACIN 0.9 GM PACKET TP SCH ×2 (10:12→21:05)
[2018-07-15] MEDS: NAPROXEN 500 MG TABLET (FP) PO SCH ×2 (10:12→21:05)
[2018-07-15] MEDS: ASPIRIN COATED 81 MG TABLET.EC PO SCH (10:12)
[2018-07-15] MEDS: NICOTINE 21 MG/24 HOURS TOPICAL PATCH TD SCH (10:13)
[2018-07-15] MEDS: INSULIN (LEVEMIR) 100 UNITS/ML UNITS SQ SCH (21:05)
[2018-07-15] MEDS: THIAMINE HCL 100 MG TABLET (FP) PO SCH (21:05)
[2018-07-16] MEDS: DOCUSATE SODIUM 100 MG CAPSULE (FP) PO SCH ×3 (06:33→21:18)
[2018-07-16] MEDS: CYCLOBENZAPRINE HCL 10 MG TABLET (FP) PO SCH ×3 (06:33→21:18)
[2018-07-16] MEDS: metFORMIN HCL 500 MG TABLET (FP) PO SCH ×2 (06:33→16:46)
[2018-07-16] MEDS: RANITIDINE HCL 150 MG TABLET (FP) PO SCH ×2 (10:13→21:18)
[2018-07-16] MEDS: BACITRACIN 0.9 GM PACKET TP SCH ×2 (10:13→21:18)
[2018-07-16] MEDS: ASPIRIN COATED 81 MG TABLET.EC PO SCH (10:13)
[2018-07-16] MEDS: PRENATAL VITAMINS W/ FOLIC ACID TABLET (FP) PO SCH (10:13)
[2018-07-16] MEDS: NAPROXEN 500 MG TABLET (FP) PO SCH ×2 (10:13→21:18)
[2018-07-16] MEDS: SULFAMETHOXAZOLE/TRIMETHOPRIM 800MG/160MG D.S. TABLET PO SCH ×2 (10:13→21:18)
[2018-07-16] MEDS: NICOTINE 21 MG/24 HOURS TOPICAL PATCH TD SCH (10:14)
[2018-07-16] MEDS: LIDOCAINE VISCOUS 2% ORAL/TOP 20 ML UNIT-DOSE CUP MM SCH ×4 (11:50→23:31)
--- NOTE | 2018-07-16 15:48 | PN ---
[facility] Progress Note Note: C/O PAIN TO LEFT SIDE OF GUM. PT REPORTS USE OF DENTURE BUT HAD TO TAKE IT OFF DUE TO THE PAIN. ORAL EXAM: LEFT SIDE OF FLOOR OF MOUTH WITH SLIGHT REDNESS AND ABRASION. Vital Signs - 24 hr 07/16/18 07/16/18 07/16/18 00:30 03:30 07:03 Temperature 97.8 F Pulse Rate 97 H Respiratory 16 16 20 Rate Blood Pressure 135/75 IMPRESSION:ILL-FITTED DENTURE PLAN;LIDOCAINE SWISH DIRECTED.
[2018-07-16] MEDS: THIAMINE HCL 100 MG TABLET (FP) PO SCH (21:18)
[2018-07-16] MEDS: INSULIN (LEVEMIR) 100 UNITS/ML UNITS SQ SCH (21:19)
[2018-07-17] MEDS: LIDOCAINE VISCOUS 2% ORAL/TOP 20 ML UNIT-DOSE CUP MM SCH ×6 (03:15→23:48)
[2018-07-17] MEDS: DOCUSATE SODIUM 100 MG CAPSULE (FP) PO SCH ×3 (06:32→21:57)
[2018-07-17] MEDS: CYCLOBENZAPRINE HCL 10 MG TABLET (FP) PO SCH ×3 (06:32→21:57)
[2018-07-17] MEDS: metFORMIN HCL 500 MG TABLET (FP) PO SCH ×2 (07:10→16:57)
[2018-07-17] MEDS: ASPIRIN COATED 81 MG TABLET.EC PO SCH (10:05)
[2018-07-17] MEDS: RANITIDINE HCL 150 MG TABLET (FP) PO SCH ×2 (10:05→21:57)
[2018-07-17] MEDS: BACITRACIN 0.9 GM PACKET TP SCH ×2 (10:05→21:58)
[2018-07-17] MEDS: NAPROXEN 500 MG TABLET (FP) PO SCH ×2 (10:05→21:57)
[2018-07-17] MEDS: PRENATAL VITAMINS W/ FOLIC ACID TABLET (FP) PO SCH (10:05)
[2018-07-17] MEDS: NICOTINE 21 MG/24 HOURS TOPICAL PATCH TD SCH (10:05)
[2018-07-17] MEDS: SULFAMETHOXAZOLE/TRIMETHOPRIM 800MG/160MG D.S. TABLET PO SCH ×2 (10:05→21:57)
[2018-07-17] MEDS: THIAMINE HCL 100 MG TABLET (FP) PO SCH (21:57)
[2018-07-17] MEDS: INSULIN (LEVEMIR) 100 UNITS/ML UNITS SQ SCH (21:58)
[2018-07-18] MEDS: LIDOCAINE VISCOUS 2% ORAL/TOP 20 ML UNIT-DOSE CUP MM SCH ×6 (06:24→22:42)
[2018-07-18] MEDS: metFORMIN HCL 500 MG TABLET (FP) PO SCH ×2 (06:26→16:57)
[2018-07-18] MEDS: CYCLOBENZAPRINE HCL 10 MG TABLET (FP) PO SCH ×3 (06:26→21:31)
[2018-07-18] MEDS: DOCUSATE SODIUM 100 MG CAPSULE (FP) PO SCH ×3 (06:26→21:31)
[2018-07-18] MEDS: NICOTINE 21 MG/24 HOURS TOPICAL PATCH TD SCH (10:00)
[2018-07-18] MEDS: BACITRACIN 0.9 GM PACKET TP SCH ×2 (10:00→21:31)
[2018-07-18] MEDS: ASPIRIN COATED 81 MG TABLET.EC PO SCH (10:00)
[2018-07-18] MEDS: SULFAMETHOXAZOLE/TRIMETHOPRIM 800MG/160MG D.S. TABLET PO SCH ×2 (10:00→21:31)
[2018-07-18] MEDS: NAPROXEN 500 MG TABLET (FP) PO SCH ×2 (10:00→21:31)
[2018-07-18] MEDS: RANITIDINE HCL 150 MG TABLET (FP) PO SCH ×2 (10:01→21:31)
[2018-07-18] MEDS: PRENATAL VITAMINS W/ FOLIC ACID TABLET (FP) PO SCH (10:01)
[2018-07-18] MEDS: THIAMINE HCL 100 MG TABLET (FP) PO SCH (21:31)
[2018-07-18] MEDS: INSULIN (LEVEMIR) 100 UNITS/ML UNITS SQ SCH (21:32)
[2018-07-19] MEDS: LIDOCAINE VISCOUS 2% ORAL/TOP 20 ML UNIT-DOSE CUP MM SCH ×6 (03:15→23:27)
[2018-07-19] MEDS: CYCLOBENZAPRINE HCL 10 MG TABLET (FP) PO SCH ×3 (06:33→21:29)
[2018-07-19] MEDS: DOCUSATE SODIUM 100 MG CAPSULE (FP) PO SCH ×3 (06:33→21:29)
[2018-07-19] MEDS: metFORMIN HCL 500 MG TABLET (FP) PO SCH ×2 (07:04→16:35)
[2018-07-19] MEDS: RANITIDINE HCL 150 MG TABLET (FP) PO SCH ×2 (10:07→21:29)
[2018-07-19] MEDS: NAPROXEN 500 MG TABLET (FP) PO SCH ×2 (10:07→21:29)
[2018-07-19] MEDS: BACITRACIN 0.9 GM PACKET TP SCH ×2 (10:07→21:29)
[2018-07-19] MEDS: PRENATAL VITAMINS W/ FOLIC ACID TABLET (FP) PO SCH (10:07)
[2018-07-19] MEDS: ASPIRIN COATED 81 MG TABLET.EC PO SCH (10:07)
[2018-07-19] MEDS: SULFAMETHOXAZOLE/TRIMETHOPRIM 800MG/160MG D.S. TABLET PO SCH ×2 (10:07→21:29)
[2018-07-19] MEDS: NICOTINE 21 MG/24 HOURS TOPICAL PATCH TD SCH (10:07)
[2018-07-19] MEDS: THIAMINE HCL 100 MG TABLET (FP) PO SCH (21:29)
[2018-07-19] MEDS: INSULIN (LEVEMIR) 100 UNITS/ML UNITS SQ SCH (21:30)
[2018-07-20] MEDS: LIDOCAINE VISCOUS 2% ORAL/TOP 20 ML UNIT-DOSE CUP MM SCH ×5 (03:15→19:15)
[2018-07-20] MEDS: CYCLOBENZAPRINE HCL 10 MG TABLET (FP) PO SCH ×3 (06:21→21:15)
[2018-07-20] MEDS: DOCUSATE SODIUM 100 MG CAPSULE (FP) PO SCH ×3 (06:21→21:15)
[2018-07-20] MEDS: metFORMIN HCL 500 MG TABLET (FP) PO SCH ×2 (06:52→16:38)
[2018-07-20] MEDS: ASPIRIN COATED 81 MG TABLET.EC PO SCH (10:43)
[2018-07-20] MEDS: NICOTINE 21 MG/24 HOURS TOPICAL PATCH TD SCH (10:43)
[2018-07-20] MEDS: NAPROXEN 500 MG TABLET (FP) PO SCH ×2 (10:43→21:15)
[2018-07-20] MEDS: BACITRACIN 0.9 GM PACKET TP SCH ×2 (10:43→21:15)
[2018-07-20] MEDS: SULFAMETHOXAZOLE/TRIMETHOPRIM 800MG/160MG D.S. TABLET PO SCH ×2 (10:43→21:15)
[2018-07-20] MEDS: PRENATAL VITAMINS W/ FOLIC ACID TABLET (FP) PO SCH (10:43)
[2018-07-20] MEDS: RANITIDINE HCL 150 MG TABLET (FP) PO SCH ×2 (10:43→21:15)
[2018-07-20] MEDS: THIAMINE HCL 100 MG TABLET (FP) PO SCH (21:15)
[2018-07-20] MEDS: INSULIN (LEVEMIR) 100 UNITS/ML UNITS SQ SCH (21:16)
[2018-07-21] MEDS: LIDOCAINE VISCOUS 2% ORAL/TOP 20 ML UNIT-DOSE CUP MM SCH ×7 (00:14→23:11)
[2018-07-21] MEDS: CYCLOBENZAPRINE HCL 10 MG TABLET (FP) PO SCH ×3 (06:18→21:18)
[2018-07-21] MEDS: DOCUSATE SODIUM 100 MG CAPSULE (FP) PO SCH ×3 (06:18→21:18)
[2018-07-21] MEDS: metFORMIN HCL 500 MG TABLET (FP) PO SCH ×2 (06:48→16:44)
[2018-07-21] MEDS: BACITRACIN 0.9 GM PACKET TP SCH ×2 (09:56→21:17)
[2018-07-21] MEDS: ASPIRIN COATED 81 MG TABLET.EC PO SCH (09:56)
[2018-07-21] MEDS: NICOTINE 21 MG/24 HOURS TOPICAL PATCH TD SCH (09:56)
[2018-07-21] MEDS: SULFAMETHOXAZOLE/TRIMETHOPRIM 800MG/160MG D.S. TABLET PO SCH ×2 (09:56→21:18)
[2018-07-21] MEDS: RANITIDINE HCL 150 MG TABLET (FP) PO SCH ×2 (09:56→21:18)
[2018-07-21] MEDS: PRENATAL VITAMINS W/ FOLIC ACID TABLET (FP) PO SCH (09:56)
[2018-07-21] MEDS: NAPROXEN 500 MG TABLET (FP) PO SCH ×2 (09:56→21:18)
[2018-07-21] MEDS: INSULIN (LEVEMIR) 100 UNITS/ML UNITS SQ SCH (21:17)
[2018-07-21] MEDS: THIAMINE HCL 100 MG TABLET (FP) PO SCH (21:18)
[2018-07-22] MEDS: LIDOCAINE VISCOUS 2% ORAL/TOP 20 ML UNIT-DOSE CUP MM SCH ×6 (06:20→23:12)
[2018-07-22] MEDS: metFORMIN HCL 500 MG TABLET (FP) PO SCH ×2 (06:39→16:43)
[2018-07-22] MEDS: DOCUSATE SODIUM 100 MG CAPSULE (FP) PO SCH ×3 (06:39→21:57)
[2018-07-22] MEDS: CYCLOBENZAPRINE HCL 10 MG TABLET (FP) PO SCH ×3 (06:39→21:57)
[2018-07-22] MEDS: SULFAMETHOXAZOLE/TRIMETHOPRIM 800MG/160MG D.S. TABLET PO SCH ×2 (10:09→21:57)
[2018-07-22] MEDS: PRENATAL VITAMINS W/ FOLIC ACID TABLET (FP) PO SCH (10:09)
[2018-07-22] MEDS: ASPIRIN COATED 81 MG TABLET.EC PO SCH (10:09)
[2018-07-22] MEDS: NICOTINE 21 MG/24 HOURS TOPICAL PATCH TD SCH (10:09)
[2018-07-22] MEDS: RANITIDINE HCL 150 MG TABLET (FP) PO SCH ×2 (10:09→21:57)
[2018-07-22] MEDS: NAPROXEN 500 MG TABLET (FP) PO SCH ×2 (10:09→21:57)
[2018-07-22] MEDS: BACITRACIN 0.9 GM PACKET TP SCH ×2 (10:09→21:57)
[2018-07-22] MEDS: THIAMINE HCL 100 MG TABLET (FP) PO SCH (21:57)
[2018-07-22] MEDS: INSULIN (LEVEMIR) 100 UNITS/ML UNITS SQ SCH (21:59)
[2018-07-23] MEDS: LIDOCAINE VISCOUS 2% ORAL/TOP 20 ML UNIT-DOSE CUP MM SCH ×6 (03:15→23:20)
[2018-07-23] MEDS: CYCLOBENZAPRINE HCL 10 MG TABLET (FP) PO SCH ×3 (06:18→21:22)
[2018-07-23] MEDS: DOCUSATE SODIUM 100 MG CAPSULE (FP) PO SCH ×3 (06:19→21:22)
[2018-07-23] MEDS: metFORMIN HCL 500 MG TABLET (FP) PO SCH ×2 (06:58→16:42)
[2018-07-23] MEDS: RANITIDINE HCL 150 MG TABLET (FP) PO SCH ×2 (09:56→21:22)
[2018-07-23] MEDS: ASPIRIN COATED 81 MG TABLET.EC PO SCH (09:56)
[2018-07-23] MEDS: SULFAMETHOXAZOLE/TRIMETHOPRIM 800MG/160MG D.S. TABLET PO SCH ×2 (09:56→21:22)
[2018-07-23] MEDS: BACITRACIN 0.9 GM PACKET TP SCH ×2 (09:56→21:22)
[2018-07-23] MEDS: NICOTINE 21 MG/24 HOURS TOPICAL PATCH TD SCH (09:56)
[2018-07-23] MEDS: PRENATAL VITAMINS W/ FOLIC ACID TABLET (FP) PO SCH (09:56)
[2018-07-23] MEDS: NAPROXEN 500 MG TABLET (FP) PO SCH ×2 (09:56→21:22)
--- NOTE | 2018-07-23 12:41 | PN ---
Psychiatric Progress Note Vital Signs: Vital Signs Period Temp Pulse Resp BP Sys/Lee Pulse Ox Last 24 Hr 98 F 88 18-18 140/91 Date of Session: 07/23/18 Chief Complaint:: Discharge Note HPI: Patient addressing Cannabis Dependence comorbid with Nicotine Dependence and Schizophrenia ROS: HIV, IDDM were medically managed Current Medications: Active Medications Generic Name Dose Route Start Last Admin Trade Name Freq PRN Reason Stop Dose Admin Acetaminophen 650 mg 06/26/18 13:31 07/14/18 02:41 Tylenol - PO 650 mg Q4H PRN Administration FEVER Al Hydroxide/Mg Hydroxide 30 ml 06/26/18 13:31 Mylanta Oral Suspension - PO Q6H PRN DYSPEPSIA Aspirin 81 mg 06/27/18 10:00 07/23/18 09:56 Ecotrin - PO 81 mg DAILY ZENIA Administration Bacitracin 0.9 gm 06/26/18 14:05 07/23/18 09:56 Bacitracin - TP 0.9 gm BID ZENIA Administration Colloidal Oatmeal 1 applic 06/28/18 12:53 Aveeno Soap - TP DAILY PRN HYGEINE Cyclobenzaprine HCl 10 mg 07/08/18 15:15 07/23/18 06:18 Flexeril - PO 10 mg TID ZENIA Administration Diphenhydramine HCl 25 mg 06/26/18 13:33 07/07/18 22:25 Benadryl - PO 25 mg HS PRN Administration INSOMNIA Docusate Sodium 100 mg 07/04/18 22:00 07/23/18 06:19 Colace - PO 100 mg TID ZENIA Administration Eucalyptus/Menthol/Phenol/Sorbitol 1 each 06/26/18 13:31 Cepastat Lozenge - MM Q4H PRN SORE THROAT Guaifenesin 10 ml 06/26/18 13:31 Robitussin Dm - PO Q6H PRN COUGH Hydroxyzine Pamoate 50 mg 06/26/18 13:31 07/04/18 21:06 Vistaril - PO 50 mg Q4H PRN Administration AGITATION Insulin Detemir 20 units 06/28/18 22:00 07/22/18 21:59 Levemir Vial SQ 20 units HS ZENIA Administration Lidocaine HCl 5 ml 07/16/18 11:15 07/23/18 11:42 Xylocaine 2% Viscous Oral - MM 5 ml Q4H EZNIA Administration Loperamide HCl 4 mg 06/26/18 13:31 Imodium - PO Q6H PRN DIARRHEA Magnesium Citrate 300 ml 06/26/18 13:31 07/06/18 02:07 Citroma - PO 300 ml Q48H PRN Administration CONSTIPATION Magnesium Hydroxide 30 ml 06/26/18 13:31 07/04/18 12:27 Milk Of Magnesia - PO 30 ml DAILY PRN Administration CONSTIPATION Melatonin 5 mg 06/26/18 22:00 07/10/18 21:47 Melatonin PO 5 mg HS PRN Administration INSOMNIA Metformin HCl 500 mg 06/28/18 16:30 07/23/18 06:58 Glucophage - PO 500 mg BID@0700,1630 ZENIA Administration Naproxen 500 mg 07/08/18 22:00 07/23/18 09:56 Naprosyn - PO 500 mg BID ZENIA Administration Nicotine 21 mg 06/26/18 14:05 07/23/18 09:56 Nicoderm Patch - TD Not Given DAILY ZENIA Nicotine Polacrilex 2 mg 06/26/18 13:31 Nicorette Gum - BUC Q2H PRN NICOTINE REPLACEMENT RX Multivit/Folic Acid/Iron 1 tab 06/27/18 10:00 07/23/18 09:56 Vitamins (Sjr) - PO 1 tab DAILY ZENIA Administration Pseudoephedrine/Triprolidine 1 combo 06/26/18 13:31 Actifed - PO TID PRN NASAL CONGESTION Ranitidine HCl 150 mg 07/08/18 22:00 07/23/18 09:56 Zantac - PO 150 mg BID ZENIA Administration Thiamine HCl 100 mg 06/26/18 22:00 07/22/18 21:57 Vitamin B1 - PO 100 mg HS ZENIA Administration Trimethoprim/Sulfamethoxazole 1 each 06/26/18 22:00 07/23/18 09:56 Bactrim Ds - PO 1 each BID ZENIA Administration Current Side Effect: No Lab tests ordered: Yes Lab tests reviewed: Yes Provider note:: Patient will complete this program on 07/24/18. He has met his treatment goals and will continue to address his issues in outpatient treatment at [facility]. Told bid writer that from his paticipation in this program, he has learned the importance of making meetings and have a sponsor. He is stable for discharge on 07/24/18 Total face to face time:: 35 Mental Status Exam - Mental Status Exam Alert and Oriented to: Time, Place, Person Cognitive Function: Fair Patient Appearance: Well Groomed Mood: Hopeful, Euthymic Affect: Appropriate Patient Behavior: Cooperative Speech Pattern: Clear Voice Loudness: Normal Thought Process: Intact, Goal Oriented Thought Disorder: Not Present Hallucinations: Denies Suicidal Ideation: Denies Homicidal Ideation: Denies Insight/Judgement: Fair Sleep: Fair Appetite: Good Muscle strength/Tone: Normal Gait/Station: Normal Psychiatric Treatment Plan - Problem List (1) Cannabis dependence Current Visit: Yes (2) Nicotine dependence Current Visit: Yes (3) Schizophrenia Current Visit: Yes (4) Substance induced mood disorder Current Visit: Yes (5) Substance-induced sleep disorder Current Visit: Yes (6) HIV (human immunodeficiency virus infection) Current Visit: Yes (7) IDDM (insulin dependent diabetes mellitus) Current Visit: Yes Initial treatment plan: Patient will be discharged tomorrow and referred to [facility] for outpatient treatment
[2018-07-23] MEDS: THIAMINE HCL 100 MG TABLET (FP) PO SCH (21:22)
[2018-07-23] MEDS: INSULIN (LEVEMIR) 100 UNITS/ML UNITS SQ SCH (21:23)
[2018-07-24] MEDS: LIDOCAINE VISCOUS 2% ORAL/TOP 20 ML UNIT-DOSE CUP MM SCH ×2 (03:15→06:34)
[2018-07-24] MEDS: DOCUSATE SODIUM 100 MG CAPSULE (FP) PO SCH (05:58)
[2018-07-24] MEDS: CYCLOBENZAPRINE HCL 10 MG TABLET (FP) PO SCH (05:58)
[2018-07-24 06:54] VITALS: BP 133/76; PULSE 95; TEMP 97.6
[2018-07-24] MEDS: metFORMIN HCL 500 MG TABLET (FP) PO SCH (07:03)
--- NOTE | 2018-07-24 15:02 | PN ---
S Progress Note Note: PT WAS DISCHARGED EARLIER TODAY. THIS CLINIC PHYSICIAN DIRECTOR DID NOT SEE THIS PT BEFORE HE LEFT. Vital Signs - 24 hr 07/24/18 07/24/18 03:30 06:54 Temperature 97.6 F Pulse Rate 95 H Respiratory 18 20 Rate Blood Pressure 133/76 PLAN:FOR PT TO FOLLOW UP WITH AFTERCARE DISCUSSED WITH HIS COUNSELOR.
== END 2018-07-24 08:08 | disposition home or self-care (01) | DRG 772 ==
LOC: YASAS 12:03 → Y3W 13:52
PROVIDERS: ADMIT Psychiatry & Neurology Psychiatry; ATTEND Psychiatry & Neurology Psychiatry
PROC: HZ42ZZZ Group Counseling for Substance Abuse Treatment, Cognitive-Behavioral (ICD-10-PCS; principal; 2018-06-26)
DX: F12.20 Cannabis dependence, uncomplicated (principal); F17.210 Nicotine dependence, cigarettes, uncomplicated; F19.24 Other psychoactive substance dependence with psychoactive substance-induced mood disorder; F19.282 Other psychoactive substance dependence with psychoactive substance-induced sleep disorder; F20.9 Schizophrenia, unspecified; F31.9 Bipolar disorder, unspecified; E11.9 Type 2 diabetes mellitus without complications; Z79.4 Long term (current) use of insulin; Z79.84 Long term (current) use of oral hypoglycemic drugs; K59.00 Constipation, unspecified; R55 Syncope and collapse; Z21 Asymptomatic human immunodeficiency virus [HIV] infection status; E78.5 Hyperlipidemia, unspecified; R63.4 Abnormal weight loss; Z68.22 Body mass index [BMI] 22.0-22.9, adult; Z87.820 Personal history of traumatic brain injury
CPT/HCPCS: 36415; 80053; 81003; 82962; 85027; 86593; 90688; G0008